=== PATIENT | female | born 1970 | race Caucasian/White ===

== ENCOUNTER 2017-12-08 19:43 | Emergency (ER) | payer OTHER ==
--- NOTE | 2017-12-08 21:33 | RAD REPORT ---
EXAM DESCRIPTION: RAD - Foot Left 3 View - 12/08/2017 9:21 pm CLINICAL HISTORY: PAIN Trauma, difficulty bearing weight COMPARISON: No comparisons FINDINGS: No bone or joint abnormality is seen.
[2017-12-08] MEDS ORDERED: IBUPROFEN 400 MG TAB ONE (22:14)
--- NOTE | 2017-12-08 22:35 | EDPHYS ---
Physician Documentation [facility] Name: Halima Cervantes Age: 47 yrs Sex: Female : 1970 Arrival Date: 12/08/2017 Time: 19:43 Bed 9 Private MD: ED Physician Omar Henriquez HPI: 12/08 22:00 This 47 yrs old Female presents to ER via Wheelchair with complaints of Fall cp Injury, Foot Injury. 22:00 The patient presents with decreased range of motion, an injury, pain, that is acute. cp The complaints affect the left foot. Context: the patient can partially bear weight, the patient is able to ambulate, with moderate difficulty, resulted from misstep while swimming. Onset: The symptoms/episode began/occurred today. Modifying factors: the symptoms are aggravated by weight bearing, movement. Associated signs and symptoms: Pertinent positives: numbness, swelling. 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 - Social history:: Smoking status: Patient uses tobacco products, smokes one-half pack cigarettes per day, Patient/guardian denies using alcohol, street drugs. - Ebola Screening: : No symptoms or risks identified at this time. ROS: 22:05 Constitutional: Negative for body aches, chills, fever, poor PO intake. cp 22:05 Eyes: Negative for injury, pain, redness, and discharge. cp 22:05 ENT: Negative for drainage from ear(s), ear pain, sore throat, difficulty swallowing, difficulty handling secretions. 22:05 Neck: Negative for pain with movement, pain at rest, stiffness, bony tenderness. 22:05 Cardiovascular: Negative for chest pain, edema, palpitations. 22:05 Respiratory: Negative for cough, shortness of breath, wheezing. 22:05 Abdomen/GI: Negative for abdominal pain, nausea, vomiting, and diarrhea. 22:05 MS/extremity: Positive for decreased range of motion, pain, paresthesias, swelling, tenderness, of the dorsum of left foot, Negative for deformity, warmth. 22:05 Skin: Negative for cellulitis, rash. 22:05 All other systems are negative. Exam: 22:15 Constitutional: The patient appears in no acute distress, alert, awake, non-toxic, well cp developed, well nourished, uncomfortable. 22:15 Head/Face: Normocephalic, atraumatic. cp 22:15 Eyes: Periorbital structures: appear normal, Conjunctiva: normal, no exudate, no injection, Lids and lashes: appear normal, bilaterally. 22:15 ENT: External ear(s): are unremarkable, Nose: is normal, Mouth: is normal, Posterior pharynx: is normal, airway is patent. 22:15 Neck: ROM/movement: is normal, is supple, without pain, no range of motions limitations, no nuchal rigidity. 22:15 Chest/axilla: Inspection: normal, Palpation: is normal, no crepitus, no tenderness. 22:15 Cardiovascular: Rate: normal, Rhythm: regular. 22:15 Respiratory: the patient does not display signs of respiratory distress, Respirations: normal, no use of accessory muscles, no retractions, no splinting, no tachypnea. 22:15 Abdomen/GI: Exam negative for discomfort, distension, guarding, Inspection: abdomen appears normal. 22:15 Back: pain, is absent, ROM is normal. 22:15 Musculoskeletal/extremity: Extremities: grossly normal except: noted in the dorsum left foot: pain, swelling, tenderness, There is no evidence of deformity, no tenderness noted to ankle, no tenderness proximal fibula, Achilles tendon palpated and intact. Vital Signs: 20:23 BP 127 / 77; Pulse 97; Resp 16 S; Temp 99.7(O); Pulse Ox 96% on R/A; Weight 99.79 kg bb (R); Height 5 ft. 11 in. (180.34 cm) (R); Pain 8/10; 23:34 BP 119 / 71; Pulse 87; Resp 18 S; Temp 98.7(O); Pulse Ox 96% on R/A; Pain 3/10; bb 20:23 Body Mass Index 30.68 (99.79 kg, 180.34 cm) bb Procedures: 23:33 Splinting: Splint applied to left foot using Orthoglass splint, applied by nurse. cp Examined by me, post splint application: neurovascular intact, Patient tolerated well. MDM: 21:35 Patient medically screened. cp 22:00 Differential diagnosis: fracture, sprain, dislocation, tendon rupture. cp 22:22 Data reviewed: vital signs, nurses notes, radiologic studies, plain films. cp 22:22 Test interpretation: by ED physician or midlevel provider: plain radiologic studies. cp Counseling: I had a detailed discussion with the patient and/or guardian regarding: the historical points, exam findings, and any diagnostic results supporting the discharge/admit diagnosis, radiology results, to return to the emergency department if symptoms worsen or persist or if there are any questions or concerns that arise at home. Response to treatment: the patient's symptoms have mildly improved after treatment, and as a result, I will discharge patient. 12/08 20:25 Order name: Foot Left 3 View XRAY; Complete Time: 22:05 bb 12/08 22:05 Interpretation: Reviewed report. cp 12/08 22:03 Order name: Splint: posterior lower leg; Complete Time: 23:34 cp 12/08 22:18 Order name: Crutches; Complete Time: 23:34 cp Administered Medications: 22:15 Drug: Ibuprofen 800 mg Route: PO; bb 23:35 Follow up: Response: Pain is decreased bb Disposition: 12/08/17 22:34 Discharged to Home. Impression: Pain in left foot - s/p fall. - Condition is Stable. - Discharge Instructions: Foot Sprain. - Prescriptions for Naprosyn 500 mg Oral Tablet - take 1 tablet by ORAL route 2 times per day take with food; 20 tablet. - Medication Reconciliation Form, Thank You Letter, Antibiotic Education, Prescription Opioid Use form. - Follow up: Constantin Little MD; When: 1 week; Reason: Recheck today's complaints. - Problem is new. - Symptoms have improved. Addendum: 12/11/2017 10:20 Co-signature as Attending Physician, Omar Henriquez MD I agree with the assessment and w a plan of care. Signatures: Dispatcher [employer] Arminda Soni RN RN Manuel Thacker PA PA cp Appiah, William, MD MD wa Corrections: (The following items were deleted from the chart) 12/08 23:36 22:34 12/08/2017 22:34 Discharged to Home. Impression: Pain in left foot - s/p fall. bb Condition is Stable. Forms are Medication Reconciliation Form, Thank You Letter, Antibiotic Education, Prescription Opioid Use. Follow up: Dr. Constantin Little; When: 1 week; Reason: Recheck today's complaints. Problem is new. Symptoms have improved. cp
--- NOTE | 2017-12-08 22:35 | ER ---
Nurse's Notes [facility] Name: Halima Cervantes Age: 47 yrs Sex: Female : 1970 Arrival Date: 12/08/2017 Time: 19:43 Bed 9 Private MD: Diagnosis: Pain in left foot-s/p fall Presentation: 12/08 20:22 Presenting complaint: Patient states: she was getting into the pool at approx 1630 bb today and slipped sitting down on left foot now has left foot pain and is unable to move her toes, denies LOC and did not hit her head. Transition of care: patient was not received from another setting of care. Onset of symptoms was December 08, 2017 at 16:30. Risk Assessment: Do you want to hurt yourself or someone else? Patient reports no desire to harm self or others. Initial Sepsis Screen: Does the patient meet any 2 criteria? No. Patient's initial sepsis screen is negative. Does the patient have a suspected source of infection? No. Patient's initial sepsis screen is negative. Care prior to arrival: None. 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 - Social history:: Smoking status: Patient uses tobacco products, smokes one-half pack cigarettes per day, Patient/guardian denies using alcohol, street drugs. - Ebola Screening: : No symptoms or risks identified at this time. Screenin:25 Abuse screen: Denies threats or abuse. Nutritional screening: No deficits noted. bb Tuberculosis screening: No symptoms or risk factors identified. Fall Risk None identified. Assessment: 20:25 General: Appears in no apparent distress. uncomfortable, Behavior is calm, cooperative. bb Pain: Complains of pain in left foot. Neuro: Level of Consciousness is awake, alert, obeys commands, Oriented to person, place, time, situation. Cardiovascular: No deficits noted. Respiratory: Respiratory effort is even, unlabored, Respiratory pattern is regular. GI: No deficits noted. No signs and/or symptoms were reported involving the gastrointestinal system. Derm: Skin is pink, warm \T\ dry. Musculoskeletal: Swelling present in left ankle Reports pain in left foot. 21:42 Reassessment: No changes from previously documented assessment. Patient and/or family bb updated on plan of care and expected duration. Pain level reassessed. Patient is alert, oriented x 3, equal unlabored respirations, skin warm/dry/pink. family at bedside. 23:28 Reassessment: Patient and/or family updated on plan of care and expected duration. Pain bb level reassessed. Patient is alert, oriented x 3, equal unlabored respirations, skin warm/dry/pink. splint to left lower leg in place cap refill to toes less than 3 seconds pt states foot is feeling better. Pt verbalized understanding of and agrees to plan of care discharge instructions given pt assisted to exit via wheelchair accompanied by family. Vital Signs: 20:23 BP 127 / 77; Pulse 97; Resp 16 S; Temp 99.7(O); Pulse Ox 96% on R/A; Weight 99.79 kg bb (R); Height 5 ft. 11 in. (180.34 cm) (R); Pain 8/10; 23:34 BP 119 / 71; Pulse 87; Resp 18 S; Temp 98.7(O); Pulse Ox 96% on R/A; Pain 3/10; bb 20:23 Body Mass Index 30.68 (99.79 kg, 180.34 cm) bb ED Course: 19:43 Patient arrived in ED. es 20:23 Triage completed. bb 20:23 Arm band placed on right wrist. Patient placed in waiting room, Patient notified of bb wait time. X-ray ordered. Family accompanied patient. 20:25 Patient has correct armband on for positive identification. Call light in reach. Adult bb w/ patient. 21:19 X-ray completed. Portable x-ray completed in exam room. Patient tolerated procedure kp1 well. 21:20 Foot Left 3 View XRAY In Process Unspecified. EDMS 21:35 Manuel Mcknight PA is PHCP. cp 21:35 Omar Henriquez MD is Attending Physician. cp 21:38 Arminda Sal RN is Primary Nurse. bb 22:33 Constantin Little MD is Referral Physician. cp 23:00 Crutch training done. Orthoglass splint: Posterior short lleg splint applied on left bb leg. by [place] technical maintenance technician. 23:36 No provider procedures requiring assistance completed. Patient did not have IV access bb during this emergency room visit. Administered Medications: 22:15 Drug: Ibuprofen 800 mg Route: PO; bb 23:35 Follow up: Response: Pain is decreased bb Outcome: 22:34 Discharge ordered by MD. cp 23:36 Discharged to home via wheelchair, with crutches. bb 23:36 Condition: stable 23:36 Discharge instructions given to patient, Instructed on discharge instructions, follow up and referral plans. medication usage, crutch walking, Demonstrated understanding of instructions, follow-up care, medications, crutch walking, splint care, Prescriptions given X 1. 23:36 Patient left the ED. bb Signatures: Dispatcher [employer] Sosa Solares Brenda RN RN bb Manuel Mcknight PA PA cp Poole, Kathy kp1
== END 2017-12-08 23:36 | disposition home or self-care (01) ==
LOC: ER 19:43
PROC: 2W3TX1Z Immobilization of Left Foot using Splint (ICD-10-PCS; principal; 2017-12-08)
DX: M79.672 Pain in left foot (principal); F17.210 Nicotine dependence, cigarettes, uncomplicated; W17.89XA Other fall from one level to another, initial encounter; Y92.019 Unspecified place in single-family (private) house as the place of occurrence of the external cause
CPT/HCPCS: 99284